=== PATIENT | male | born 1980 | race Caucasian/White ===

== ENCOUNTER 2024-03-19 06:57 | Day surgery (SDC) | payer MEDICAID ==
[~2024-03-19] VITALS: Ht 175.3 cm; Wt 98.2 kg
[~2024-03-19 06:57] MED LIST: EMTR1TAB23 PO; FAMO20 PO; LIDOCAINE/PF 2% 5 ML VIAL ONE; MESA1.2T3 PO; PROPOFOL 1% 20 ML VIAL IVP ONE; SODIUM CHLORIDE 0.9% 1,000 ML ONE; SUCR1TAB2 PO
[2024-03-19] MEDS: SODIUM CHLORIDE 0.9% 1,000 ML IV ONE (07:33)
== END 2024-03-19 11:00 | disposition home or self-care (01) ==
LOC: SURGERY 06:57
PROVIDERS: ATTEND Internal Medicine Gastroenterology
DX: R19.7 Diarrhea, unspecified (principal); K21.00 Gastro-esophageal reflux disease with esophagitis, without bleeding; K29.70 Gastritis, unspecified, without bleeding; K64.8 Other hemorrhoids; E66.3 Overweight; G47.33 Obstructive sleep apnea (adult) (pediatric); Z79.899 Other long term (current) drug therapy; Z98.890 Other specified postprocedural states; Z68.34 Body mass index [BMI] 34.0-34.9, adult; Z88.1 Allergy status to other antibiotic agents; Z80.0 Family history of malignant neoplasm of digestive organs
CPT/HCPCS: 45380; 43239; 88305; 88312; 88313; C1769; J2704; J3490; J7030